=== PATIENT | female | born 1975 | race African-American/Black ===

== ENCOUNTER 2019-10-16 21:22 | Emergency (ER) | payer MEDICAID ==
[~2019-10-16] VITALS: Ht 170.2 cm; Wt 77.0 kg
[2019-10-16 21:23] VITALS: BP 109/67
[2019-10-16] MEDS ORDERED: BALANCED SALT IRRIG SOLN 15ML IR ONE ×2 (22:30→22:45)
[2019-10-16] MEDS ORDERED: TETRACAINE 0.5% OPHTH DROPS 4ML BOTHEYE ONE (22:30)
[2019-10-17] MEDS ORDERED: FLUORESCEIN SODIUM 1MG/STRIP BOTHEYE ONE ×2
== END 2019-10-17 00:22 | disposition home or self-care (01) ==
LOC: ER 21:22
DX: H10.9 Unspecified conjunctivitis (principal)
CPT/HCPCS: 99283